=== PATIENT | female | born 1965 | race African-American/Black ===

== ENCOUNTER 2020-10-21 09:08 | Emergency (ER) | payer OTHER ==
[~2020-10-21] VITALS: Ht 170.2 cm; Wt 59.2 kg
[2020-10-21] MEDS ORDERED: KETOROLAC 30 MG/1 ML IM ONE (09:30)
--- NOTE | 2020-10-21 09:34 | NUR ---
PT PRESENTS TO ED WITH C/O LEFT WRIST/HAND PAIN AND SWELLING RELATED TO GLF 2 DAYS AGO. L HAND SWELLING/TENDERNESS NOTED. PT STATES NUMBNESS AND TINGLING TO L HAND, ABLE TO WIGGLE FINGERS. PT STATES 10/10 PAIN. PT A&O, RESPS EVEN AND UNLABORED, VSS, NADN. ERPA AT BEDSIDE FOR EVAL.
--- NOTE | 2020-10-21 09:35 | NUR ---
2+ RADIAL PULSE FELT BILATERALLY, PT L HAND WARM TO TOUCH.
--- NOTE | 2020-10-21 09:49 | NUR ---
[facility] in [facility] - 10/21/20 at 0949 by TIM BREAK RN:PT TO XRAY
--- NOTE | 2020-10-21 09:50 | NUR ---
BREAK RN: PT TO XRAY
--- NOTE | 2020-10-21 09:57 | NUR ---
PT BACK FROM XRAY
[2020-10-21] MEDS ORDERED: KETOROLAC 30 MG/1 ML ONE (10:01)
--- NOTE | 2020-10-21 10:09 | NUR ---
PT MEDICATED FOR 10/10 PER ORDER, TOLERATED WELL. PT A&O, RESPS EVEN AND UNLABORED, VSS, NADN.
--- NOTE | 2020-10-21 10:28 | NUR ---
PT STATES PAIN HAS DECREASED FROM 04/20 TO 12/18. PT A&O, RESPS EVEN AND UNLABORED, VSS, NADN. ROM OF L HAND HAS INCREASED SLIGHTLY, 2+ RADIAL PULSES FELT BILATERALLY. ICE PACK PROVIDED.
[2020-10-21] MEDS ORDERED: HYDROcodone/APAP 5/325 TABLET ONE (10:54)
[2020-10-21 10:57] VITALS: BP 113/78
--- NOTE | 2020-10-21 10:57 | NUR ---
PT A&O, RESPS EVEN AND UNLABORED, VSS, NADN. MEDICATED FOR 10/10 PAIN PER ORDER. AWAITING SPLINT THEN PLAN TO DISCHARGE.
[2020-10-21] MEDS ORDERED: HYDROcodone/APAP 5/325 TABLET PO PRN (11:00)
--- NOTE | 2020-10-21 11:30 | NUR ---
EDT AT BEDSIDE FOR SPLINT
--- NOTE | 2020-10-21 12:00 | NUR ---
PT A&O, RESPS EVEN AND UNLABORED, VSS, NADN. SPLINT PLACED, PT DENIES NUMBNESS/TINGLING, ABLE TO WIGGLE FINGERS. PT EDUCATED ON DISCHARGE INSTRUCTIONS, PRSCRIPTION, FOLLOW-UP, RETURN CRITERIA, AND SPLINT INSTRUCTIONS, VERBALIZED UNDERSTANDING. AMBULATORY TO DISCHARGE DESK WITH STEADY GAIT.
== END 2020-10-21 12:02 | disposition home or self-care (01) ==
LOC: ED 10:48
DX: S92.255A Nondisplaced fracture of navicular [scaphoid] of left foot, initial encounter for closed fracture (principal); S63.522A Sprain of radiocarpal joint of left wrist, initial encounter; S50.02XA Contusion of left elbow, initial encounter; S60.222A Contusion of left hand, initial encounter; I10 Essential (primary) hypertension; E78.00 Pure hypercholesterolemia, unspecified; W01.0XXA Fall on same level from slipping, tripping and stumbling without subsequent striking against object, initial encounter; Y93.89 Activity, other specified; Y92.009 Unspecified place in unspecified non-institutional (private) residence as the place of occurrence of the external cause; Y99.8 Other external cause status
CPT/HCPCS: 29125; 73080; 73110; 73130; 96372; 99284; J1885